=== PATIENT | male | born 1970 | race Caucasian/White ===

== ENCOUNTER 2020-10-31 03:34 | Emergency (ER) | payer MEDICAID, OTHER ==
[~2020-10-31] VITALS: Ht 175.3 cm; Wt 127.0 kg
[2020-10-31 06:07] VITALS: BP 126/73
== END 2020-10-31 06:16 | disposition home or self-care (01) ==
LOC: ER 03:34
DX: S92.502A Displaced unspecified fracture of left lesser toe(s), initial encounter for closed fracture (principal); S91.115A Laceration without foreign body of left lesser toe(s) without damage to nail, initial encounter; G47.419 Narcolepsy without cataplexy; F17.210 Nicotine dependence, cigarettes, uncomplicated; W19.XXXA Unspecified fall, initial encounter; Y93.89 Activity, other specified; Y92.89 Other specified places as the place of occurrence of the external cause; Y99.8 Other external cause status
CPT/HCPCS: 12004; 70450; 72125; 73630